=== PATIENT | female | born 2000 | race Caucasian/White ===

== ENCOUNTER → 2023-11-22 | Outpatient (CLI) | payer OTHER ==
[~2023-11-22] MED LIST: AMOCLA250S PO; AMOX50SU PO; AZIT200SU PO; DIVA125EC PO; IBUP100S; PHENO20EL; PHENO20EL PO; PHENO30; RXAMOCLASU PO; RXCODACESY PO; SULTRIEL PO
== END | disposition home or self-care (01) ==
LOC: LAB SHORT 16:23 → LAB 16:23
DX: O09.93 Supervision of high risk pregnancy, unspecified, third trimester (principal)
CPT/HCPCS: 87081; 87150

== ENCOUNTER 2023-12-17 06:21 | Inpatient (IN) | payer OTHER ==
[2023-12-17] VITALS (28 sets, daily range): BP systolic 128–176; BP diastolic 62–95
[~2023-12-17] VITALS: Ht 167.6 cm; Wt 118.6 kg
[2023-12-17] MEDS ORDERED: PRENATAL TABLE1 EAC2 (08:59)
[2023-12-17] MEDS ORDERED: ONDA4ODT (09:00)
[2023-12-17] MEDS ORDERED: Ampicillin Sod 2,000 MG in NS 100 ML IV STA (09:04)
[2023-12-17] MEDS ORDERED: Ondansetron HCl 2 MG / ML 2ML Vial IV PRN (09:05)
[2023-12-17] MEDS ORDERED: Bupivacaine 0.5% HCl 5 MG/ML 30MLVIAL XX SCH (09:05)
[2023-12-17] MEDS ORDERED: Lidocaine HCl 1% 30 ML SDV XX SCH (09:05)
[2023-12-17] MEDS ORDERED: Oxytocin 10 Unit / ML Vial IM SCH (09:05)
[2023-12-17] MEDS ORDERED: OXYTOCIN/RINGER'S LACTATE 500 ML IV SCH ×3 (09:05→19:10)
[2023-12-17] MEDS ORDERED: Castor Oil 59.146 ML BTL TOP SCH (09:05)
[2023-12-17] MEDS ORDERED: Lactated Ringer's 1,000 ML IV SCH ×5 (09:05→19:15)
[2023-12-17] MEDS ORDERED: Methylergonovine Maleate 0.2MG / ML 1ML Amp IM SCH (09:05)
[2023-12-17] MEDS ORDERED: Misoprostol 200 MCG Tab PR SCH (09:05)
[2023-12-17] MEDS ORDERED: FentaNYL 2mcg/ml-Bup 0.1% Epd 250 ML EPI PRN (09:05)
[2023-12-17] MEDS ORDERED: Calcium Carbonate 500 MG Tab Chew PO ONE (09:05)
[2023-12-17] MEDS ORDERED: ePHEDrine Sulfate 50 MG/ML 1ML Injection XX PRN (09:05)
[2023-12-17] MEDS ORDERED: FentaNYL Citrate 50 MCG/ML 2 ML Injection IV PRN (09:05)
[2023-12-17] MEDS ORDERED: Bupivacaine HCl 2.5 MG/ML 10ML P/F Injection XX SCH (09:05)
[2023-12-17] MEDS ORDERED: Lactated Ringer's 1,000 ML IV PRN (09:05)
[2023-12-17] MEDS ORDERED: Calcium Carbonate 500 MG Tab Chew PO PRN (09:25)
[2023-12-17 09:54] LABS: BASOPHILS ABSOLUTE AUTO 0.04 K/mm3 (0.00-0.23); BASOPHILS PERCENT AUTO 0 % (0-2); EOSINOPHILS ABSOLUTE AUTO 0.04 K/mm3 (0.00-0.68); EOSINOPHILS PERCENT AUTO 0 % (0-6); Hematocrit 35.4 % (33.0-51.0); Hemoglobin 12.5 g/dL (11.5-16.0); IMMATURE GRAN ABSOLUTE AUTO 0.11 K/mm3 (0.00-0.10); IMMATURE GRAN PERCENT AUTO 1 % (0-1); LYMPHOCYTES ABSOLUTE AUTO 1.56 K/mm3 (0.84-5.20); LYMPHOCYTES PERCENT AUTO 10 % (21-46); MONOCYTES ABSOLUTE AUTO 1.02 K/mm3 (0.16-1.47); MONOCYTES PERCENT AUTO 7 % (4-13); Mean Corpuscular HGB 31.9 pg (26.0-34.0); Mean Corpuscular HGB Conc 35.3 g/dL (31.5-36.5); Mean Corpuscular Volume 90 fL (80-100); Mean Platelet Volume 11.9 fL (9.1-12.4); NEUTROPHILS ABSOLUTE AUTO 12.88 K/mm3 (1.96-9.15); NEUTROPHILS PERCENT AUTO 82 % (41-73); Platelet Count 231 K/mm3 (150-400); RDW Coefficient Variation 13.8 % (11.7-14.2); RDW Standard Deviation 45.3 fL (35.1-46.3); Red Blood Cell Count 3.92 M/mm3 (3.80-5.20); White Blood Cell Count 15.65 K/mm3 (4.00-11.30)
[2023-12-17] MEDS ORDERED: Calcium Gluconate 0.465 mEq/ml 10 ml Vial IV PRN (12:10)
[2023-12-17] MEDS ORDERED: Labetalol HCL 5 MG/ML 4ML Injection (Single Dose) IV PRN ×2 (12:10)
[2023-12-17] MEDS ORDERED: Labetalol HCL 5 MG/ML 4ML Injection (Single Dose) IV ONE (12:10)
[2023-12-17] MEDS ORDERED: Magnesium Sulfate 500 ML IV SCH (12:10)
[2023-12-17] MEDS ORDERED: Magnesium Sul 4 GM/Water100 ML 100 ML IV ONE (12:10)
[2023-12-17] MEDS ORDERED: Magnesium Sulf 2 GM/Water 50ML 50 ML IV SCH (12:10)
[2023-12-17] MEDS ORDERED: Labetalol HCL 5 MG/ML 4ML Injection (Single Dose) ONE (12:12)
[2023-12-17] MEDS ORDERED: Bupivacaine HCl 0.25% 30 ML Injection XX ONE (12:52)
[2023-12-17 12:57] LABS: Protein, Urine Random 46.2 mg/dL (0.0-11.9); Protein/Creat Ratio, Ur Random 0.4
[2023-12-17] MEDS ORDERED: Ampicillin Sod 1,000 MG in NS 50 ML IV SCH (13:00)
[2023-12-17 13:08] LABS: Albumin, Blood 2.9 g/dL (3.4-5.0); Albumin/Globulin Ratio 0.8 (0.8-1.8); Bilirubin, Total 0.8 mg/dL (0.1-1.0); Bun/Creatinine Ratio 12.7 (12.0-20.0); Calcium, Blood 8.8 mg/dL (8.5-10.1); Creatinine, Blood 0.79 mg/dL (0.40-1.00); Globulin, Blood 3.8 g/dL (2.2-4.0); Potassium, Blood 3.5 mmol/L (3.5-5.5); Total Protein, Blood 6.7 g/dL (6.4-8.2)
[2023-12-17 13:23] LABS: International Normalized Ratio 0.87; Prothrombin Time Results 9.4 Sec (9.7-11.5)
[2023-12-17] MEDS ORDERED: Benzocaine Topical Anesthetic Spray 60GM TOP PRN (19:05)
[2023-12-17] MEDS ORDERED: Ibuprofen 400 MG Tab PO PRN (19:10)
[2023-12-17] MEDS ORDERED: Acetaminophen 325 MG TABLET PO PRN (19:10)
[2023-12-17] MEDS ORDERED: Lanolin Cream TOP PRN (19:10)
[2023-12-17] MEDS ORDERED: Misoprostol 200 MCG Tab PR PRN (19:15)
[2023-12-17] MEDS ORDERED: Witch Hazel/Glycerin PADS TOP PRN (19:15)
[2023-12-17] MEDS ORDERED: Methylergonovine Maleate 0.2MG / ML 1ML Amp IM PRN (19:15)
[2023-12-17] MEDS ORDERED: Docusate Sodium 100 MG Cap PO PRN (19:15)
[2023-12-17] MEDS ORDERED: Labetalol HCL 100 MG TAB PO PRN (19:15)
[2023-12-17] MEDS ORDERED: Ketorolac Tromethamine 30mg Vial IV PRN (20:00)
[2023-12-17] MEDS ORDERED: Ketorolac Tromethamine 30mg Vial IV ONE (20:00)
[2023-12-18] VITALS (9 sets, daily range): BP systolic 121–158; BP diastolic 56–88
[2023-12-18 07:07] LABS: Hematocrit 31.7 % (33.0-51.0); Hemoglobin 10.8 g/dL (11.5-16.0); Mean Corpuscular HGB 31.1 pg (26.0-34.0); Mean Corpuscular HGB Conc 34.1 g/dL (31.5-36.5); Mean Corpuscular Volume 91 fL (80-100); Platelet Count 223 K/mm3 (150-400); RDW Coefficient Variation 14.2 % (11.7-14.2); RDW Standard Deviation 46.7 fL (35.1-46.3); Red Blood Cell Count 3.47 M/mm3 (3.80-5.20)
[2023-12-18 07:24] LABS: Albumin, Blood 2.5 g/dL (3.4-5.0); Albumin/Globulin Ratio 0.8 (0.8-1.8); Bilirubin, Total 0.6 mg/dL (0.1-1.0); Bun/Creatinine Ratio 11.1 (12.0-20.0); Calcium, Blood 7.3 mg/dL (8.5-10.1); Creatinine, Blood 0.72 mg/dL (0.40-1.00); Globulin, Blood 3.3 g/dL (2.2-4.0); Potassium, Blood 3.9 mmol/L (3.5-5.5); Total Protein, Blood 5.8 g/dL (6.4-8.2)
[2023-12-18] MEDS ORDERED: Prenatal Vit/FE Fumarate/FA 1 Tab PO SCH (09:00)
--- NOTE | 2023-12-18 10:59 | NUR ---
1059 MAGNESIUM SULFATE TURNED OFF
[2023-12-19 04:02] VITALS: BP 133/68
[2023-12-19 07:17] VITALS: BP 140/75
[2023-12-19 10:10] VITALS: BP 131/80
== END 2023-12-19 10:15 | disposition home or self-care (01) | DRG 807 ==
LOC: OBS 06:21 → BC 06:27 → OBS 08:48 → BC 09:22
PROVIDERS: Advanced Practice Midwife; ADMIT Obstetrics & Gynecology
PROC: 10E0XZZ Delivery of Products of Conception, External Approach (ICD-10-PCS; principal; 2023-12-17)
PROC: 0KQM0ZZ Repair Perineum Muscle, Open Approach (ICD-10-PCS; 2023-12-17)
PROC: 10907ZC Drainage of Amniotic Fluid, Therapeutic from Products of Conception, Via Natural or Artificial Opening (ICD-10-PCS; 2023-12-17)
DX: O14.94 Unspecified pre-eclampsia, complicating childbirth (principal); Z37.0 Single live birth; O99.824 Streptococcus B carrier state complicating childbirth; Z3A.39 39 weeks gestation of pregnancy; O99.214 Obesity complicating childbirth; O70.1 Second degree perineal laceration during delivery; O99.344 Other mental disorders complicating childbirth; F41.9 Anxiety disorder, unspecified; O99.892 Other specified diseases and conditions complicating childbirth; M41.9 Scoliosis, unspecified
CPT/HCPCS: 36415; 80053; 82570; 83615; 84156; 85025; 85027; 85384; 85610; 85730; 86850; 86900; 86901; 86923; A9270; C1751; J0290; J1885; J2590; J3010; J3475; J7120